=== PATIENT | female | born 1975 | race Two or more races ===

== ENCOUNTER 2024-11-19 20:54 | Emergency (ER) | payer BC, SELFPAY ==
--- NOTE | 2024-11-19 20:56 | XR_ITS ---
Examination: AP chest single view Technique one AP portable upright chest single view Examination time: November 19, [id number] hours Comparison August 15, 2024 INDICATIONS: Wheezing shortness of breath beginning 24 hours ago. FINDINGS: Minimal prominence of ventricle No lobar pneumonia Mild vascular congestion No tamia pulmonary edema IMPRESSION: Mild vascular congestion No tamia pulmonary edema No lobar pneumonia
--- NOTE | 2024-11-19 21:00 | PD.EDADULT ---
ED General RME/HPI General Chief complaint: Shortness of Breath/Dyspnea Stated complaint: SOB Time Seen by Provider: 11/19/24 20:55 Arrival date/time: 11/19/24 20:54 CC: Wheezing shortness of breath HPI ongoing for the past 24 hours, history of asthma. EMS report oxygen saturations of 90% upon initial arrival she had [id number] SVN's and route the patient states she is breathing a little bit better EMS report oxygen saturation of 96% on breathing treatment. Patient remains tachycardic. Related Data Home Medications ?Medication ?Instructions ?Recorded ?Confirmed hydroxyzine pamoate 25 mg capsule 25 mg PO HS 09/10/19 06/16/20 (Vistaril) ibuprofen 800 mg tablet 800 mg PO TID PRN Pain 09/10/19 06/16/20 montelukast 10 mg tablet 10 mg PO QDAY 09/10/19 06/16/20 olmesartan 40 mg-amlodipine 5 45 tab PO QDAY 09/10/19 06/16/20 mg-hydrochlorothiazide 25 mg tablet doxycycline hyclate 100 mg capsule 100 mg PO BID 06/16/20 06/16/20 Previous Rx's ?Medication ?Instructions ?Recorded albuterol sulfate 90 mcg/actuation 2 puff INH Q4HR PRN Shortness Of 06/23/20 aerosol inhaler (Ventolin HFA) Breath Or Wheeze 30 days #2 grams guaifenesin 200 mg/5 mL oral liquid 200 mg (5 mL) PO Q4H PRN cough 11/19/24 #118 mL Allergies Allergy/AdvReac Type Severity Reaction Status Date / Time cefprozil (From Cefzil) Allergy Severe Swelling Verified 07/11/20 23:06 of Lip/Tongue/Throat cefuroxime (From Ceftin) Allergy Severe Swelling Verified 07/11/20 23:06 of Lip/Tongue/Throat erythromycin base Allergy Severe Swelling Verified 07/11/20 23:06 of Lip/Tongue/Throat Penicillins Allergy Severe Swelling Verified 07/11/20 23:06 of Lip/Tongue/Throat sulfamethoxazole (From Allergy Severe Swelling Verified 07/11/20 23:06 Bactrim) of Lip/Tongue/Throat trimethoprim (From Bactrim) Allergy Severe Swelling Verified 07/11/20 23:06 of Lip/Tongue/Throat Review of Systems Review of Systems Narrative Review of Systems: GEN: No fever, no chills, no weight loss EYES: No discharge, no visual changes, no pain HEENT: No ear pain, no congestion, no sore throat PULM: + shortness of breath, no cough, no congestion, Wheezing CV: No chest pain, no dyspnea on exertion, no palpitations GI: No nausea, no vomiting, no diarrhea, no pain, no constipation : No frequency, no urgency, no dysuria MUSC/SKEL: No joint pain, no back pain SKIN: No rash PSYCH: No hallucinations, no depression HEME/LYMPH: No easy bleeding or bruising tendencies NEURO: No weakness, no headache Past Medical History Past Medical History CARDIAC: Positive Deep Vein Thrombosis and Hypertension; Negative Cardiac Disorders or Congestive Heart Failure RESPIRATORY: Negative Chronic Obstructive Pulmonary Disease (COPD) or Asthma GENITOURINARY: Negative Renal Disease ENDOCRINE: Negative Diabetes Mellitus Type 1 or Diabetes Mellitus Type 2 HEMATOLOGIC: Negative Sickle Cell Disease Social History SMOKING STATUS: Never smoker SUBSTANCE USE: does not use ED Exam Narrative Physical exam: [General: Morbidly obese in mild discomfort but not in any acute distress Head normocephalic HEENT: Within acceptable limits Neck is supple nontender Chest equal chest rise nontender to palpation Respiratory: Audible expiratory wheezing, diminished in the bases. No tachypnea CV: Rate rhythm is regular no murmurs rubs or clicks Abdomen is distended secondary to body habitus soft nontender no masses positive bowel sounds all 4 quadrants Back: No CVA tenderness no spinous process tenderness from cervical spine thoracic and lumbar spine Skin: Intact no petechiae rash induration ulceration or crepitus Extremities: Moving all extremity against resistance cap refill less than 2 seconds neurosensory intact Neuro: Awake alert oriented x3 Glascow coma 15 no focal deficits] Course Quality Measures none Orders Category Date Time Status Bedside COVID-19 Antigen Test NOW Care 11/19/24 20:56 Active Bedside Influenza A&B Antigen Test NOW Care 11/19/24 20:57 Completed Glucose [Bedside Blood Glucose] NOW Care 11/19/24 21:38 Active XR chest 1V Stat Exams 11/19/24 20:56 Completed Albuterol/Ipratr Rt Jessica [Duoneb Rt Jessica] Med 11/19/24 20:56 Discontinued 3 ml INH X1 ONE Vital Signs Vital signs: Vital Signs Temperature 97.6 F 11/19/24 21:30 Pulse Rate 104 H 11/19/24 21:30 Respiratory Rate 20 11/19/24 21:30 Blood Pressure 171/96 H 11/19/24 21:30 Pulse Oximetry (%) 99 11/19/24 21:30 Oxygen Delivery Method Room Air 11/19/24 21:30 MDM Patient data External records reviewed:: [facility] previous records and EMS form Clinical information provided by:: patient and EMS Social determinants that could affect healthcare access:: none Patient has the following chronic illnesses:: Morbid obesity How is presenting disease/condition affected by chronic disease/condition?: exacerbated by Evaluation data The following diagnostics were reviewed and interpreted by me:: lab results and radiology exam(s) Lab and/or radiology exams considered but not ordered:: Chest x-ray is unremarkable for any acute finding Interpretation Summary: Patient states that she is feeling better, at the point where I want to discharge her home the patient starts coughing states that her throat is closing up . The patient is already been given steroids by her PCP even though she has diabetes without any warning about her elevated blood glucose. Patient has had 3 SVNs and then now speaking in full sentences lung bases are clear. I am comfortable discharging this patient home. Medications Medications considered but not ordered:: None Medication administrations:: Medication Administration History Discontinued Medications Albuterol/Ipratropium (Albuterol/Ipratropium (Duoneb) Rt Jessica 3 Ml Nebu) 3 ml INH X1 ONE Stop: 11/19/24 20:57 Last Admin: 11/19/24 21:14 Dose: 3 ml Documented By: DEV None Consultations Consultation(s) initiated? (list below): No Diagnosis Differential Diagnosis ED Complaint MDM: Asthma pneumonia influenza COVID Most likely diagnosis given after review of the tests above:: Asthma exacerbation morbid obesity Admission Indicated Admission indicated?: not indicated Explain why admission is indicated or not indicated:: Stable for outpatient follow-up Admission Request Was there a request for admission?: No Disposition Plan Disposition Plan: Discharge Discharge Attestation Discharge Attestation: The patient and all family members were given an opportunity to ask questions and understood the discharge instructions. Discharge instructions specifically effects, indications for sooner follow up or return to the emergency department, and the expected course of current diagnosis. Patient condition: Stable Medical Decision Making Differential Diagnosis Differential Diagnosis: Asthma pneumonia influenza COVID Discharge Plan Plan Patient Disposition: HOME (Self Care) Patient condition on transfer: Stable Prescriptions/Referrals Prescriptions/Med Rec: New guaifenesin 200 mg/5 mL liquid 200 mg PO Q4H PRN (Reason: cough) Qty: 118 0RF No Action montelukast 10 mg Tablet 10 mg PO QDAY [id number] 40-5-25 mg tablet 45 tab PO QDAY Patient Comments: TAKE 1 TABLET BY MOUTH EVERY DAY ibuprofen 800 MG tablet 800 mg PO TID PRN (Reason: Pain) hydroxyzine pamoate [Vistaril] 25 mg capsule 25 mg PO HS doxycycline hyclate 100 mg Capsule 100 mg PO BID albuterol sulfate [Ventolin HFA] 90 mcg/actuation Hfa Aerosol Inhaler 2 puff INH Q4HR PRN (Reason: Shortness Of Breath Or Wheeze) 30 Days Qty: 2 1RF Problem List Clinical Impression: Asthma exacerbation, Morbid obesity Patient/Caregiver Discharge Instructions Education Materials: Asthma Additional Instructions: Take the medications prescribed by your primary care provider, including the cough medicine supplied by me if there is a worsening of symptoms follow-up with your primary care doctor or return the emergency room for reevaluation. Print Language: Frisian Stand Alone Forms: Uma Award Info., Work/School Release, Patient Portal Info Letter PA/CHUYITA Supervising Physician ZHANG/CHUYITA Supervising Physician: Orestes Thao ENP
[2024-11-19 21:12] VITALS: PULSE 112; RESP 24; O2SAT 94
[2024-11-19] MEDS: ALBUTEROL/IPRATROPIUM (Duoneb) RT SOL 3 ML NEBU INH (21:14)
[2024-11-19 21:30] VITALS: BP 171/96; PULSE 104; RESP 20; TEMP 36.4; O2SAT 99
[2024-11-19 22:22] VITALS: BP 186/99; PULSE 101; RESP 20; TEMP 36.3; O2SAT 99
== END 2024-11-19 22:50 | disposition home or self-care (01) ==
LOC: SERX 11-20 04:30
PROVIDERS: Emergency Provider Emergency Medicine; PCP Physician Assistant
DX: J45.901 Unspecified asthma with (acute) exacerbation (principal); E66.01 Morbid (severe) obesity due to excess calories
CPT/HCPCS: 71045; 87400; 87811; 94640; 99283; A9270

== ENCOUNTER → 2025-03-21 | Outpatient (CLI) | payer BC, SELFPAY ==
--- NOTE | 2025-03-21 16:47 | XR_ITS ---
Examination: PA lateral chest 2 views TECHNIQUE: Upright PA and lateral chest 2 views Date and time: 2024, 165 hours INDICATIONS: Shortness of breath beginning 2 weeks ago FINDINGS: Mild prominence of ventricle No pneumonia or pulmonary edema Intact osseous structures IMPRESSION: No pneumonia or pulmonary edema
== END | disposition home or self-care (01) ==
LOC: CDIM 16:42
PROVIDERS: PCP Family Medicine; Referring Provider Physician Assistant; Visit Provider Physician Assistant
DX: R06.02 Shortness of breath (principal)
CPT/HCPCS: 71046

== ENCOUNTER → 2025-06-17 | Outpatient (CLI) | payer BC, SELFPAY ==
[2025-06-17 09:34] LABS: Basophils # (Auto) 0.1 Thou/mm3 (0.0-0.2); Basophils % (Auto) 1 % (0-2.5); Eosinophils # (Auto) 0.3 Thou/mm3 (0.0-0.5); Eosinophils % (Auto) 3 % (0-10); Hematocrit 39.8 % (36.0-46.0); Hemoglobin 12.8 g/dL (12.0-16.0); Immature Granulocytes Auto 0.04 Thou/mm3 (0.00-0.00); Lymphocytes # (Auto) 3.2 Thou/mm3 (1.0-4.8); Lymphocytes % (Auto) 30 % (10-50); Mean Corpuscular HGB Conc 32.2 g/dl (31.0-37.0); Mean Corpuscular Hemoglobin 26.9 pg (25.0-35.0); Mean Corpuscular Volume 84 fL (80-100); Monocytes # (Auto) 0.5 Thou/mm3 (0.0-0.8); Monocytes % (Auto) 5 % (0-12); Neutrophils # (Auto) 6.4 Thou/mm3 (1.8-7.7); Neutrophils % (Auto) 61 % (37-80); Nucleated Red Blood Cell # 0.00 Thou/mm3 (0.00-0.00); Nucleated Red Blood Cell % 0 /100 WBC (0); Platelet Count 442 Thou/mm3 (140-440); RDW Standard Deviation 48.0 fL (36.4-46.3); Red Blood Count 4.76 Miln/mm3 (4.00-5.20); White Blood Count 10.5 Thou/mm3 (3.6-11.0)
[2025-06-17 09:50] LABS: Glucose Estimated Average 143 mg/dL (80-131); Hemoglobin A1C 6.6 % Hgb (4.8-6.0)
[2025-06-17 09:53] LABS: Alanine Aminotransferase 16 U/L (10-49); Albumin, Serum 4.2 gm/dL (3.5-5.0); Albumin/Globulin Ratio 1.5 (1.2-2.2); Alkaline Phosphatase 96 U/L (46-116); Anion Gap 10 (7-16); Aspartate Amino Transferase 12 U/L (0-34); BUN/Creatinine Ratio 18 Ratio (12-20); Bilirubin,Total 0.7 mg/dL (0.3-1.2); Blood Urea Nitrogen 11 mg/dL (9-23); Calcium 9.6 mg/dL (8.3-10.6); Calcium (Corrected) 9.6 mg/dL (8.5-10.1); Carbon Dioxide 28.5 mMol/L (20.0-31.0); Cardiac Risk Estimate 2.8 RATIO (3.7-5.6); Chloride 103 mMol/L (98-107); Cholesterol 175 mg/dL (132-200); Creatinine (Component) 0.6 mg/dL (0.6-1.3); Globulin 2.8 gm/dL (2.3-3.5); Glucose 134 mg/dL (74-106); HDL Cholesterol 62 mg/dL (40-60); LDL Cholesterol,Calculated 98 mg/dL (0-130); Osmolality,Calculated 282 (275-295); Potassium 4.2 mMol/L (3.4-5.1); Sodium 141 mMol/L (136-145); Total Protein 7.0 gm/dL (5.7-8.2); Triglycerides 75 mg/dL (30-150); eGFR > 60 See Note
[2025-06-17 10:01] LABS: Vitamin B12 380 pg/mL (211-911); Vitamin D 25 Hydroxy Total 9.6 ng/mL (7.3-40.2)
[2025-06-17 10:05] LABS: Ferritin 32 ng/mL (7.3-270.7); Iron 78 mcg/dL (50-170)
[2025-06-17 11:36] LABS: Path Review Blood Smear Sent to Pathologist
== END | disposition home or self-care (01) ==
LOC: COPL 08:28
PROVIDERS: PCP Family Medicine; Referring Provider Physician Assistant; Visit Provider Physician Assistant
DX: E11.65 Type 2 diabetes mellitus with hyperglycemia (principal); I10 Essential (primary) hypertension; E78.5 Hyperlipidemia, unspecified; D72.829 Elevated white blood cell count, unspecified; D75.839 Thrombocytosis, unspecified; D50.9 Iron deficiency anemia, unspecified; D51.9 Vitamin B12 deficiency anemia, unspecified; E55.9 Vitamin D deficiency, unspecified
CPT/HCPCS: 36415; 80053; 80061; 82306; 82607; 82728; 83036; 83540; 85025

== ENCOUNTER → 2025-08-06 | Outpatient (CLI) | payer BC, SELFPAY ==
--- NOTE | 2025-08-06 | XR_ITS ---
EXAMINATION: PA lateral chest 2 views TECHNIQUE: Upright PA lateral chest 2 views Date and time: August 06, 2025, 1107 hours, comparison March 21, 2025 INDICATIONS: Chest pain beginning 3 weeks ago. FINDINGS: Minor prominence left ventricle No pneumonia or pulmonary edema. Moderate osteopenia. IMPRESSION: No active disease
[2025-08-06 12:29] LABS: Basophils # (Auto) 0.0 Thou/mm3 (0.0-0.2); Basophils % (Auto) 0 % (0-2.5); Eosinophils # (Auto) 0.4 Thou/mm3 (0.0-0.5); Eosinophils % (Auto) 3 % (0-10); Hematocrit 44.2 % (36.0-46.0); Hemoglobin 14.2 g/dL (12.0-16.0); Immature Granulocytes Auto 0.03 Thou/mm3 (0.00-0.00); Lymphocytes # (Auto) 3.7 Thou/mm3 (1.0-4.8); Lymphocytes % (Auto) 35 % (10-50); Mean Corpuscular HGB Conc 32.1 g/dl (31.0-37.0); Mean Corpuscular Hemoglobin 26.7 pg (25.0-35.0); Mean Corpuscular Volume 83 fL (80-100); Monocytes # (Auto) 0.6 Thou/mm3 (0.0-0.8); Monocytes % (Auto) 5 % (0-12); Neutrophils # (Auto) 6.0 Thou/mm3 (1.8-7.7); Neutrophils % (Auto) 56 % (37-80); Nucleated Red Blood Cell # 0.00 Thou/mm3 (0.00-0.00); Nucleated Red Blood Cell % 0 /100 WBC (0); Platelet Count 485 Thou/mm3 (140-440); RDW Standard Deviation 46.0 fL (36.4-46.3); Red Blood Count 5.31 Miln/mm3 (4.00-5.20); White Blood Count 10.6 Thou/mm3 (3.6-11.0)
[2025-08-06 12:35] LABS: Urea Breath Test Negative (Negative)
[2025-08-06 12:57] LABS: Alanine Aminotransferase 23 U/L (10-49); Albumin, Serum 4.3 gm/dL (3.5-5.0); Albumin/Globulin Ratio 1.3 (1.2-2.2); Alkaline Phosphatase 94 U/L (46-116); Anion Gap 11 (7-16); Aspartate Amino Transferase 22 U/L (0-34); BUN/Creatinine Ratio 16 Ratio (12-20); Bilirubin,Total 0.6 mg/dL (0.3-1.2); Blood Urea Nitrogen 13 mg/dL (9-23); Calcium 9.3 mg/dL (8.3-10.6); Calcium (Corrected) 9.3 mg/dL (8.5-10.1); Carbon Dioxide 28.2 mMol/L (20.0-31.0); Chloride 101 mMol/L (98-107); Creatinine (Component) 0.8 mg/dL (0.6-1.3); Globulin 3.3 gm/dL (2.3-3.5); Glucose 93 mg/dL (74-106); Osmolality,Calculated 279 (275-295); Potassium 3.9 mMol/L (3.4-5.1); Sodium 140 mMol/L (136-145); Total Protein 7.6 gm/dL (5.7-8.2); Troponin I < 0.020 ng/mL (0.0-0.045); eGFR > 60 See Note
== END | disposition home or self-care (01) ==
LOC: CDIM 10:47
PROVIDERS: PCP Family Medicine; Referring Provider Physician Assistant; Visit Provider Physician Assistant
DX: R07.9 Chest pain, unspecified (principal); K21.9 Gastro-esophageal reflux disease without esophagitis
CPT/HCPCS: 36415; 71046; 80053; 83013; 83014; 84484; 85025